=== PATIENT | male | born 1980 | race Caucasian/White ===

== ENCOUNTER 2021-07-22 10:00 | Outpatient (RCR) | payer OTHER | END 2021-07-29 | LOC: PT 10:00 | PROVIDERS: ATTEND Neurological Surgery | DX: S12.4 Fracture of fifth cervical vertebra (principal) ==

== ENCOUNTER 2021-08-11 09:00 | Outpatient (RCR) | payer OTHER | END 2021-08-29 | LOC: PT 09:00 | PROVIDERS: ATTEND Neurological Surgery | DX: S12.4 Fracture of fifth cervical vertebra (principal) ==